=== PATIENT | male | born 1990 | race Caucasian/White ===

== ENCOUNTER 2020-01-18 07:42 | Emergency (ER) | payer OTHER ==
[~2020-01-18] VITALS: Ht 182.9 cm; Wt 74.8 kg
[2020-01-18 07:44] VITALS: Ht 182.9 cm; Wt 74.8 kg
[2020-01-18 09:02] LABS: BASOPHIL % 0.5 % (0-2); PLATELET COUNT 246 x10^3mcL (130-400); RED CELL DISTRIBUTION WIDTH 12.1 % (11.5-14.5)
[2020-01-18 09:09] LABS: CALCIUM 8.7 mg/dL (8.5-10.1); CHLORIDE SERUM 103 mmol/L (98-107); CREATININE SERUM 1.4 mg/dL (0.7-1.3); GFR1 > 60 mL/min; GLUCOSE SERUM 105 mg/dL (74-106); POTASSIUM SERUM 3.3 mmol/L (3.5-5.1); SODIUM SERUM 142 mmol/L (136-145)
[2020-01-18 09:14] LABS: ALKALINE PHOSPHATASE 80 U/L (46-116); ALT/SGPT 28 U/L (16-63); AST/SGOT 18 U/L (15-37); BILIRUBIN TOTAL 0.47 mg/dL (0.20-1.00); LIPASE 208 IU/L (73-393); TOTAL PROTEIN, SERUM 7.5 g/dL (6.4-8.2)
[2020-01-18 09:55] VITALS: BP 128/75
== END 2020-01-18 09:55 | disposition home or self-care (01) ==
LOC: ED 07:42
PROVIDERS: Emergency Medicine
DX: K29.70 Gastritis, unspecified, without bleeding (principal); F41.9 Anxiety disorder, unspecified

== ENCOUNTER 2020-02-07 05:48 | Emergency (ER) | payer OTHER ==
[~2020-02-07] VITALS: Ht 188 cm; Wt 92.3 kg
[2020-02-07 07:09] LABS: microscopic required? NO
[2020-02-07 07:25] LABS: UA SPECIFIC GRAVITY >=1.030 (1.005-1.035); urine erythrocyte NEGATIVE (NEGATIVE)
[2020-02-07 07:30] VITALS: BP 120/79
== END 2020-02-07 07:30 | disposition home or self-care (01) ==
LOC: ED 05:48
PROVIDERS: Emergency Medicine
DX: R10.812 Left upper quadrant abdominal tenderness (principal); R10.13 Epigastric pain; R00.2 Palpitations; K21.9 Gastro-esophageal reflux disease without esophagitis
CPT/HCPCS: Q0092